=== PATIENT | male | born 1985 | race Caucasian/White ===

== ENCOUNTER 2023-05-13 09:51 | Outpatient (AMB) | payer OTHER, SELFPAY ==
[2023-05-13 09:54] VITALS: BP 118/76; PULSE 91; O2SAT 98; BMI 22.5
--- NOTE | 2023-05-13 09:54 | A.OFFVIS_ITS ---
Intake Vital Signs 05/13/23 09:54 Height 6 ft 2 in Weight 175 lb 4 oz BMI 22.5 BP 118/76 Blood Pressure Location Rt brachial Position Sitting Pulse 91 Pulse Source Pulse Oximeter Pulse Oximetry (%) 98 Oxygen Delivery Method Room Air Intake Visit Reasons: E-WEB DEVELOPMENT INTERN: Insomnia (02/23 - LVM+LETTER)-LVM Intake Note: Pt presents as a NPV for insomnia. Diamond Grader Required: No Allergies No Known Allergies Allergy (Verified 05/13/23 09:58) HPI HPI Comments History of Present Illness Details 37 y/o male patient presents for new in-person visit for sleep co nsultation. Pt reports difficulty staying sleep. He does not have difficulty falling asleep, sleeps 8 hrs but wakes up 4-5 times at night. It has been worsened, and it takes more time to go back to sleep. He reports snoring and wakes up tired and sleepy after lunch time. Pt tried melatonin and hydroxyzine 50 mg to help him staying sleep, but they did not help. Pt reports he has OCD and mild anxiety. Sleep questionnaire: Have you ever been diagnosed with a sleep disorder? No. Have you ever had a sleep study in the past? No. Have you ever been treated for a sleep disorder? No. Do you take medications for a sleep disorder? Melatonin caused weird dream, hydroxyizine 50 mg but not helpful. Do you snore? Yes. Do you wake up gasping at night? No. Do you have episodes of apneas? No. If yes, are they witnessed? No. Do you have episodes of nocturnal chest pain or dyspnea? No. Do you have difficulty initiating sleep? No. Do you have difficulty maintaining sleep? Yes. Do you wake up tired? Yes. Do you have headaches upon awakening? No. Do you wake up with dry mouth or throat? No. Do you have GERD? No. Do you have nocturia? No. Do you have nocturnal leg cramps? No. Do you have symptoms of restless legs? No. Do you act out your dreams? Rarely. Sleep hygiene questionnaire: What is your usual sleep routine? Usual bedtime is at 10-10:30; Usual wake up time is at 6:30 am. Do you take naps? No. Is your sleep environment cool, dark, and quiet? No. Do you exercise? Yes, walk once a day. Do you take caffeine or other stimulants? A cup of coffee in the morning. Do you use electronics in bed? Yes, watches TV. What is your work schedule? 8:30 am- 4:30 pm Hypersomnolence questionnaire: Do you have daytime tiredness or fatigue? Yes. Do you easily fall asleep when inactive? No. Have you ever had episodes of sudden weakness? No. Have you ever had episodes of sudden weakness associated with strong emotions? No. PFSH Family History (Updated 05/13/23 @ 10:00 by Vanessa Lala [facility]) Mother Breast cancer Social History (Updated 05/13/23 @ 10:00 by Vanessa Lala [facility]) Alcohol intake: never Patient Tobacco Use Status: Never used Tobacco Review of Systems Const All systems reviewed & are unremarkable except as noted in HPI and below Physical Exam Vital Signs: Last Vital Signs Pulse 91 05/13/23 09:54 BP 118/76 05/13/23 09:54 Pulse Ox 98 05/13/23 09:54 Oxygen Delivery Method Room Air 05/13/23 09:54 BMI result Body Mass Index 22.5 Const General: cooperative Nutritional Appearance: average body habitus Orientation/consciousness: patient oriented x3 Neck Neck: Yes full ROM and Yes supple Resp Effort & Inspection: normal respiratory effort and able to speak in complete sentences Neuro General: patient oriented x3 and gait normal Cognition (Neuro): normal cognition Gait exam (Neuro): Normal gait present Motor exam (neuro): 5/5 motor strength present throughout, Pronator motor function not present and no tremor noted Psych Appearance: grossly normal Mental Status: mental status grossly normal Speech and movement: Normal speech and movement present Affect: normal affect Attitude: cooperative Assessment & Plan Assessment & Plan (1) Daytime sleepiness: Code(s): R40.0 - Somnolence (2) Snoring: Code(s): R06.83 - Snoring (3) Difficulty sleeping: Code(s): G47.9 - Sleep disorder, unspecified Plan Pt is advised to undergo home sleep study to assess for sleep apnea. Will f/u with pt after study to discuss results and appropriate treatment options. Sleep hygiene education provided. Advised patient to try trazodone 25 mg as needed for sleep. Advised patient to try magnesium glycinate 200 mg qHS. Pt to call with any worsening concerns or questions. Orders: Orders RT home sleep study Today R06.83 - Snoring, R40.0 - Somnolence Medications: New trazodone 50 mg PO BEDTIME 30 days PRN 30 tabs 1RF sleep trazodone 25 mg (1/2 x 50 mg) PO BEDTIME 60 days PRN 30 tabs 1RF sleep Coding Level of Care Code New Pt Level 4 (77382) Diagnoses Daytime sleepiness R40.0 Snoring R06.83 Difficulty sleeping G47.9
== END 2023-05-13 10:36 | disposition home or self-care (01) ==
PROVIDERS: PCP Internal Medicine; Visit Provider Nurse Practitioner Family
DX: R40.0 Somnolence (principal); R06.83 Snoring; G47.9 Sleep disorder, unspecified
CPT/HCPCS: 99204

== ENCOUNTER → 2023-05-13 09:51 | Outpatient (BNVA) | payer OTHER, SELFPAY | PROVIDERS: PCP Internal Medicine; Visit Provider Nurse Practitioner Family ==

== ENCOUNTER → 2023-08-10 14:52 | Outpatient (REF) | payer OTHER, SELFPAY | LOC: HO.SL 14:52 | PROVIDERS: PCP Internal Medicine; Visit Provider Nurse Practitioner Family | DX: R40.0 Somnolence (principal); R06.83 Snoring | CPT/HCPCS: 95806 ==

== ENCOUNTER → 2023-08-10 15:08 | Outpatient (BNV) | payer OTHER, SELFPAY | PROVIDERS: PCP Internal Medicine; Visit Provider Psychiatry & Neurology Neurology | DX: R06.83 Snoring (principal) | CPT/HCPCS: 95806 ==

== ENCOUNTER 2023-09-15 11:22 | Outpatient (AMB) | payer OTHER, SELFPAY ==
--- NOTE | 2023-09-15 11:31 | A.OFFVIS_ITS ---
Intake Vital Signs 09/15/23 11:32 Height 6 ft 2 in Weight 180 lb 2 oz BMI 23.1 BP 112/74 Blood Pressure Location Lt brachial Position Sitting Respiration 15 Pulse 84 Pulse Source Pulse Oximeter Pulse Oximetry (%) 97 Oxygen Delivery Method Room Air Intake Visit Reasons: 4m f/u Insomnia - Confirmed Intake Note: Pt presents to the office for a 4 month follow up for insomnia. E Commerce Director Required: No Allergies No Known Allergies Allergy (Verified 09/15/23 11:32) HPI HPI Comments History of Present Illness Details 38 y/o male patient presents for follow up of sleep study and insomnia. The home sleep study result was normal sleep, no evidence of sleep apnea. The AHI was 0 and oxygen shilpa was 89%. Pt reports he barely sleep during the sleep study. He tried melatonin, hydroxyzine, trazodone up to 75 mg magensium, but did not help him staying sleep. He does not have difficulty falling asleep, sleeps 8 hrs but wakes up 4-5 times at night. It has been worsened, and it takes more time to go back to sleep. Pt reports he has OCD and mild anxiety, and he thinks that his OCD may causes wake him in the middle of night. He saw a therapist in the past, his OCD symptoms has been slightly better. PFSH Family History Mother Breast cancer Social History Alcohol intake: never Patient Tobacco Use Status: Never used Tobacco Review of Systems Const All systems reviewed & are unremarkable except as noted in HPI and below Physical Exam Vital Signs: Last Vital Signs Pulse 84 09/15/23 11:32 Resp 15 09/15/23 11:32 BP 112/74 09/15/23 11:32 Pulse Ox 97 09/15/23 11:32 Oxygen Delivery Method Room Air 09/15/23 11:32 BMI result Body Mass Index 23.1 Const General: cooperative Nutritional Appearance: average body habitus Orientation/consciousness: patient oriented x3 Neck Neck: Yes full ROM and Yes supple Resp Effort & Inspection: normal respiratory effort and able to speak in complete sentences Neuro General: patient oriented x3 and gait normal Cognition (Neuro): normal cognition Gait exam (Neuro): Normal gait present Motor exam (neuro): 5/5 motor strength present throughout, Pronator motor function not present and no tremor noted Psych Appearance: grossly normal Mental Status: mental status grossly normal Speech and movement: Normal speech and movement present Affect: normal affect Attitude: cooperative Assessment & Plan Assessment & Plan (1) Daytime sleepiness: Code(s): R40.0 - Somnolence (2) Difficulty sleeping: Code(s): G47.9 - Sleep disorder, unspecified (3) OCD (obsessive compulsive disorder): Code(s): F42.9 - Obsessive-compulsive disorder, unspecified Plan Advised patient to try Lunesta 1 mg qHS for sleep. May continue to take magnesium glycinate 400 mg qHS. Start sertraline 25 mg daily for OCD. Refer patient to psychiatrist to treat OCD. Orders: Referrals Psychiatry Referral F42.9 - Obsessive-compulsive disorder, unspecified Medications: New eszopiclone (Lunesta) 1 mg PO BEDTIME 30 days 30 tabs 2RF sertraline (Zoloft) 25 mg PO DAILY 30 days 30 tabs 2RF Coding Level of Care Code Est Pt Level 4 (15695) Diagnoses Daytime sleepiness R40.0 Difficulty sleeping G47.9 OCD (obsessive compulsive disorder) F42.9 Diagnoses Daytime sleepiness R40.0 Snoring R06.83 Difficulty sleeping G47.9
[2023-09-15 11:32] VITALS: BP 112/74; PULSE 84; RESP 15; O2SAT 97; BMI 23.1
== END 2023-09-15 12:27 | disposition home or self-care (01) ==
PROVIDERS: PCP Internal Medicine; Visit Provider Nurse Practitioner Family
DX: R40.0 Somnolence (principal); G47.9 Sleep disorder, unspecified; F42.9 Obsessive-compulsive disorder, unspecified
CPT/HCPCS: 99214

== ENCOUNTER → 2023-09-15 11:22 | Outpatient (BNVA) | payer OTHER, SELFPAY | PROVIDERS: PCP Internal Medicine; Visit Provider Nurse Practitioner Family | DX: R06.83 Snoring (principal); R40.0 Somnolence ==

== ENCOUNTER 2023-11-19 10:26 | Outpatient (AMB) | payer OTHER, SELFPAY ==
--- NOTE | 2023-11-19 10:29 | A.OFFVIS_ITS ---
Intake Vital Signs 11/19/23 10:33 Height 6 ft 2 in Weight 180 lb 4 oz BMI 23.1 BP 112/70 Blood Pressure Location Rt brachial Position Sitting Pulse 84 Pulse Source Pulse Oximeter Pulse Oximetry (%) 98 Oxygen Delivery Method Room Air Intake Visit Reasons: 2 mon follow up-CONF Intake Note: Patient presents for 2 month f/u. Allergies No Known Allergies Allergy (Verified 11/19/23 10:32) HPI HPI Comments History of Present Illness Details 38 y/o male patient presents for follow up of insomnia. He tried melatonin, hydroxyzine, trazodone up to 75 mg, Lunesta 1 mg, magensium, but did not help him staying sleep. He does not have difficulty falling asleep, sleeps 8 hrs but wakes up 4-5 times at night. Pt reports he moves a lot, and wakes up, it takes more time to go back to sleep. Pt reports he has OCD and mild anxiety, and he thinks that his OCD may causes wake him in the middle of night. Refer patient to manage OCD, but they don't take his insurance, and he needs to find other therapist. PFSH Family History Mother Breast cancer Social History Alcohol intake: never Patient Tobacco Use Status: Never used Tobacco Review of Systems Const All systems reviewed & are unremarkable except as noted in HPI and below Physical Exam Vital Signs: Last Vital Signs Pulse 84 11/19/23 10:33 BP 112/70 11/19/23 10:33 Pulse Ox 98 11/19/23 10:33 Oxygen Delivery Method Room Air 11/19/23 10:33 BMI result Body Mass Index 23.1 Const General: cooperative Nutritional Appearance: average body habitus Orientation/consciousness: patient oriented x3 Neck Neck: Yes full ROM and Yes supple Resp Effort & Inspection: normal respiratory effort and able to speak in complete sentences Neuro General: patient oriented x3 and gait normal Cognition (Neuro): normal cognition Gait exam (Neuro): Normal gait present Motor exam (neuro): 5/5 motor strength present throughout, Pronator motor function not present and no tremor noted Psych Appearance: grossly normal Mental Status: mental status grossly normal Speech and movement: Normal speech and movement present Affect: normal affect Attitude: cooperative Assessment & Plan Assessment & Plan (1) Difficulty sleeping: Code(s): G47.9 - Sleep disorder, unspecified (2) OCD (obsessive compulsive disorder): Code(s): F42.9 - Obsessive-compulsive disorder, unspecified Plan Advised patient to try gabapentin 100 mg 1-3 capsules at night for two weeks. Advised patient to read Say Good Night to Insomnia and practice the 6 weeks sleep hygiene program. Will consider Ambien ER. Medications: New gabapentin 1-3 capsules orally bedtime; 30 days 60 caps 0RF Discontinued 2 eszopiclone (Lunesta) Discontinued Reason: Doctor's Order 1 mg PO BEDTIME 30 days 30 tabs 2RF trazodone Discontinued Reason: Doctor's Order 25 mg (1/2 x 50 mg) PO BEDTIME 60 days PRN 30 tabs 1RF sleep Coding Level of Care Code Est Pt Level 3 (92931) Diagnoses Difficulty sleeping G47.9 OCD (obsessive compulsive disorder) F42.9
[2023-11-19 10:33] VITALS: BP 112/70; PULSE 84; O2SAT 98; BMI 23.1
== END 2023-11-19 11:05 | disposition home or self-care (01) ==
PROVIDERS: PCP Internal Medicine; Visit Provider Nurse Practitioner Family
DX: G47.9 Sleep disorder, unspecified (principal); F42.9 Obsessive-compulsive disorder, unspecified
CPT/HCPCS: 99213

== ENCOUNTER → 2023-11-19 10:26 | Outpatient (BNVA) | payer OTHER, SELFPAY | PROVIDERS: PCP Internal Medicine; Visit Provider Nurse Practitioner Family ==

== ENCOUNTER 2025-07-27 10:58 | Outpatient (AMB) | payer OTHER, SELFPAY ==
[2025-07-27 11:08] VITALS: BP 112/76; PULSE 79; O2SAT 99; BMI 23.0
--- NOTE | 2025-07-27 11:08 | A.OFFVIS_ITS ---
Vital Signs 07/27/25 11:08 Height 6 ft 2 in Weight 179 lb 6 oz BMI 23.0 BP 112/76 Blood Pressure Location Rt brachial Position Sitting Pulse 79 Pulse Source Pulse Oximeter Pulse Oximetry (%) 99 Oxygen Delivery Method Room Air Intake Visit Reasons: follow up (LVM) Intake Note: Patient presents follow up Sleep Medication. Patient states medication helps Allergies No Known Allergies Allergy (Verified 07/27/25 11:10) HPI Comments Details: 40 y/o male patient presents for follow up of Insomnia. PMH: 07/2023 HST Normal study, oxygen Ceasar 88%, snoring mildly, HR not certain elevation or artifact will send for PSG. Interim Med Hx: recent dx of Testicular cancer being followed with [facility]. He tried melatonin, hydroxyzine, trazodone up to 75 mg, Lunesta 1 mg, nothing helped. He started prn ambien and now gets about 5 hours of restful sleep however intermittently in 2.5 hour segments. 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 He reports he has OCD with mild anxiety now, and was prescribed sertraline and never used it d/t s/e of libido, ED. He denies headaches. Memory is stable, denies brain fog. He does travel for work, has game night with friends and a great support network. He denies having RLS. His mood is okay, though more anxious with all his medical appt. Diet is stable. [facility] Medical History Testicular cancer Family History Mother Breast cancer Social History Alcohol intake: never Patient Tobacco Use Status: Never used Tobacco Physical Exam Vital Signs: Last Vital Signs Pulse 79 07/27/25 11:08 BP 112/76 07/27/25 11:08 Pulse Ox 99 07/27/25 11:08 Oxygen Delivery Method Room Air 07/27/25 11:08 BMI result Body Mass Index 23.0 Const General: cooperative Nutritional Appearance: average body habitus Orientation/consciousness: patient oriented x3 Neck Neck: Yes full ROM and Yes supple Resp Effort & Inspection: normal respiratory effort and able to speak in complete sentences Neuro General: patient oriented x3 and gait normal Cognition (Neuro): normal cognition Gait exam (Neuro): Normal gait present Motor exam (neuro): 5/5 motor strength present throughout, Pronator motor function not present and no tremor noted Psych Appearance: grossly normal Affect: normal affect Attitude: cooperative Thought process: Normal thought process present Thought content: Normal thought content present Results Reviewed Results Reviewed: HST Jul 2023 Assessment & Plan Assessment & Plan (1) Excessive daytime sleepiness: Code(s): G47.19 - Other hypersomnia Category: Medical (2) Snoring: Code(s): R06.83 - Snoring Category: Medical (3) Difficulty sleeping: Code(s): G47.9 - Sleep disorder, unspecified Category: Medical (4) Anxiety: Comment: Pt would like to be started on Buproprion due to OCD -Sertraline declined due to s/e of ED/Libido. Code(s): F41.9 - Anxiety disorder, unspecified Category: Medical Plan Difficulty staying asleep mild snoring. Will eval with PSG in lab, recent h/o testicular cancer. Continue taking Ambien 5mg PO PRN improved sleep now. Anxiety: Continue to engage in meaning social activities with friends and weekly visits with your therapist. You may diffuse essential oils, night time yoga, listen to calming music, vibration therapy, or red light therapy. Pt declined Cetirizine concerned with s/e ED and Libido, wants a quicker onset medication due to OCD behaviors, he no longer sees a therapist due to insurance concerns, continues to checks light, stove, locks prior to leaving home distressing. Will Speak to Dr. Wilcox re: Buproprion, as he no longer has a therapist. F/U in 3 months Orders: Orders RT PSG in-lab sleep study Today G47.19 - Other hypersomnia, G47.9 - Sleep disorder, unspecified, R06.83 - Snoring Patient Instructions: Sleep Hygiene provided: set a scheduled bedtime and wake time to help regulate the circadian rhythm and balance the release of pituitary hormones. Sleep in a dark room, temperatures below 68 degrees, and no devices n bed. Limit caffeinated products 6 hours prior to bed, and limit fluids 2-4 hours prior to bed. Gentle night yoga, diffusing essential oils, and playing soft music can be relaxing. Continue to engage in meaning social activities with friends and weekly visits with your therapist. Listen to calming music, vibration therapy, or red light therapy. Will f/u in 3months Coding Level of Care Code New Pt Level 4 (67747) Diagnoses Excessive daytime sleepiness G47.19 Snoring R06.83 Difficulty sleeping G47.9 Anxiety F41.9
== END 2025-07-27 11:39 | disposition home or self-care (01) ==
LOC: HO.HSMS 10:58
PROVIDERS: PCP Internal Medicine; Visit Provider Physician Assistant Medical
DX: G47.19 Other hypersomnia (principal); R06.83 Snoring; G47.9 Sleep disorder, unspecified; F41.9 Anxiety disorder, unspecified
CPT/HCPCS: 99214